=== PATIENT | female | born 1940 | race Caucasian/White ===

== ENCOUNTER 2017-02-10 14:38 | Emergency (ER) | payer OTHER, MEDICARE ==
[~2017-02-10] VITALS: Ht 157.5 cm; Wt 80.3 kg
[~2017-02-10 14:38] MED LIST: MOTRIN 600 MG600 MG PO; PERCOCET 325 MG1 TA2 PO; ZITHROMAX Z-PA250 M1 PO
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
[2017-02-10] MEDS ORDERED: CLEOCIN HCL300 M1 PO (16:21)
[2017-02-10] MEDS ORDERED: DOXYCYCLINE MO100 M2 PO (16:21)
[2017-02-10 17:11] VITALS: BP 132/78
== END 2017-02-10 17:11 ==
LOC: ERH 14:38
DX: S51.851A Open bite of right forearm, initial encounter (principal); Y04.1XXA Assault by human bite, initial encounter; Y92.9 Unspecified place or not applicable; Y93.9 Activity, unspecified
CPT/HCPCS: 87389; 90471